=== PATIENT | male | born 1975 | race Caucasian/White ===

== ENCOUNTER 2019-04-28 03:25 | Emergency (ER) | payer OTHER ==
[2019-04-28 03:29] VITALS: RESP 18; TEMP 98.4
[2019-04-28] MEDS ORDERED: SODIUM CHLORIDE 0.9% 1,000 ML IV STA (03:32)
[2019-04-28] MEDS ORDERED: MORPHINE SULFATE 4 MG/ML SYRINGE IV STA (03:32)
--- NOTE | 2019-04-28 03:33 | ED ---
General Adult HPI - General Chief complaint: Abdominal Pain Stated complaint: Abd pain Time Seen by Provider: 04/28/19 03:26 Source: patient, EMS Mode of arrival: EMS Limitations: no limitations - History of Present Illness Initial comments: Dictation was produced using [employer] dictation software. please excuse any grammatical, word or spelling errors. Chief Complaint: 43-year-old male presents with right lower quadrant abdominal pain. History of Present Illness: Patient is a 43-year-old male he denies any past medical history. He states he is here today for right lower quadrant abdominal pain. Patient states that his symptoms started approximately 2 hours prior to arrival. He called EMS. Patient has history of kidney stones. Patient states that the pain that eases 15 today is very different from kidney stone pain. He does however complain of some mild right flank tenderness. Denies any numbness and paresthesias to his extremities. Denies any fever. He does feel nauseous. Patient states his pain is severe. Patient denies any history of abdominal surgery. The ROS documented in this emergency department record has been reviewed and confirmed by me. Those systems with pertinent positive or negative responses have been documented in the HPI. All other systems are other negative and/or noncontributory. PHYSICAL EXAM: General Impression: Alert and oriented x3, acute distress secondary to pain HEENT: Normocephalic atraumatic, extra-ocular movements intact, pupils equal and reactive to light bilaterally, mucous membranes moist. Cardiovascular: Heart regular rate and rhythm, S1&S2 audible, no murmurs, rubs or gallops Chest: Lungs clear to auscultation bilaterally, no rhonchi, no wheeze, no rales Abdomen: Bowel sounds present, abdomen soft, positive rebound tenderness, pain at McBurney's point, pain in the right lower quadrant with palpation to the left lower quadrant, negative Gomez sign, no CVA tenderness Musculoskeletal: Pulses present and equal in all extremities, no peripheral edema Motor: no focal deficits noted Neurological: CN II-XII grossly intact, no focal motor or sensory deficits noted Skin: Intact with no visualized rashes Psych: Normal affect and mood ED course: 43-year-old male presents with right lower quadrant abdominal pain. There is concern of possible acute appendicitis versus kidney stone based on physical examination. Vital signs upon arrival are within acceptable limits. Patient given IV analgesics, intravenous fluids. Laboratory evaluation obtained. CBC unremarkable. No leukocytosis. Metabolic panel is unremarkable. Urinalysis shows [address] of the abdomen and pelvis was obtained showing normal appendix. There is a small 2 mm calculus in the distal right ureter with hydroureter and mild hydronephrosis. Patient given fluids and analgesics. He is observed in emergency department with dramatic improvement of his symptoms. His resting comfortably at bedside. There is suspicion that patient passed a stone in the emergency department given medical improvement of his symptoms. She M Ritesh at baseline here in [facility] department. He will be dispositioned to home. Patient's family were to provide transportation. Patient told to follow-up with primary care physician upon discharge. - Related Data Allergies Allergy/AdvReac Type Severity Reaction Status Date / Time No Known Allergies Allergy Verified 04/28/19 03:30 Review of Systems ROS Statement: Those systems with pertinent positive or pertinent negative responses have been documented in the HPI. ROS Other: All systems not noted in ROS Statement are negative. Past Medical History Past Medical History: Hypertension Additional Past Medical History / Comment(s): kidney stone, depression Past Surgical History: No Surgical Hx Reported Past Psychological History: Depression Smoking Status: Never smoker Past Alcohol Use History: None Reported Past Drug Use History: None Reported General Exam Limitations: no limitations Course Vital Signs 04/28/19 04/28/19 03:26 05:02 Temperature 98.4 F Pulse Rate 62 68 Respiratory 18 18 Rate Blood Pressure 167/108 122/83 O2 Sat by Pulse 95 94 L Oximetry Medical Decision Making - Lab Data Result diagrams: 04/28/19 03:29 04/28/19 03:29 Lab Results 04/28/19 04/28/19 04/28/19 Range/Units 03:29 03:29 03:38 WBC 10.5 (3.8-10.6) k/uL RBC 5.29 (4.30-5.90) m/uL Hgb 15.6 (13.0-17.5) gm/dL Hct 45.0 (39.0-53.0) % MCV 85.1 (80.0-100.0) fL MCH 29.6 (25.0-35.0) pg MCHC 34.8 (31.0-37.0) g/dL RDW 12.7 (11.5-15.5) % Plt Count 249 (150-450) k/uL Neutrophils % 69 % Lymphocytes % 23 % Monocytes % 5 % Eosinophils % 1 % Basophils % 0 % Neutrophils # 7.3 (1.3-7.7) k/uL Lymphocytes # 2.4 (1.0-4.8) k/uL Monocytes # 0.6 (0-1.0) k/uL Eosinophils # 0.1 (0-0.7) k/uL Basophils # 0.0 (0-0.2) k/uL Sodium 141 (137-145) mmol/L Potassium 3.6 (3.5-5.1) mmol/L Chloride 109 H (98-107) mmol/L Carbon Dioxide 21 L (22-30) mmol/L Anion Gap 11 mmol/L BUN 13 (9-20) mg/dL Creatinine 1.04 (0.66-1.25) mg/dL Est GFR (CKD-EPI)AfAm >90 (>60 ml/min/1.73 sqM) Est GFR (CKD-EPI)NonAf 89 (>60 ml/min/1.73 sqM) Glucose 124 H (74-99) mg/dL Calcium 9.1 (8.4-10.2) mg/dL Total Bilirubin 0.5 (0.2-1.3) mg/dL AST 24 (17-59) U/L ALT 28 (21-72) U/L Alkaline Phosphatase 105 (38-126) U/L Total Protein 7.1 (6.3-8.2) g/dL Albumin 4.1 (3.5-5.0) g/dL Lipase 65 (23-300) U/L Urine Color Yellow Urine Appearance Clear (Clear) Urine pH 5.5 (5.0-8.0) Ur Specific [place] 1.019 (1.001-1.035) Urine Protein Trace H (Negative) Urine Glucose (UA) Trace H (Negative) Urine Ketones Negative (Negative) Urine Blood Moderate H (Negative) Urine Nitrite Negative (Negative) Urine Bilirubin Negative (Negative) Urine Urobilinogen <2.0 (<2.0) mg/dL Ur Leukocyte Esterase Negative (Negative) Urine RBC 13 H (0-5) /hpf Urine WBC 1 (0-5) /hpf Calcium Oxalate Crystal Occasional H (None) /hpf Hyaline Casts 7 H (0-2) /lpf Granular Casts 1 (0) /lpf Urine Mucus Rare H (None) /hpf Disposition Clinical Impression: Kidney stone Disposition: HOME SELF-CARE Condition: Good Instructions (If sedation given, give patient instructions): Kidney Stones (ED) Is patient prescribed a controlled substance at d/c from ED?: No Referrals: Mark Hilton MD [Primary Care Provider] - 1-2 days Time of Disposition: 05:13
[2019-04-28 03:39] LABS: Basophils % (A) 0 %; Eosinophils # (A) 0.1 k/uL (0-0.7); Eosinophils % (A) 1 %; HGB 15.6 gm/dL (13.0-17.5); Lymphocytes # (A) 2.4 k/uL (1.0-4.8); Lymphocytes % (A) 23 %; MCH 29.6 pg (25.0-35.0); MCHC 34.8 g/dL (31.0-37.0); MCV 85.1 fL (80.0-100.0); Mean Platelet Volume 5.9; Monocytes # (A) 0.6 k/uL (0-1.0); Monocytes % (A) 5 %; Neutrophils # (A) 7.3 k/uL (1.3-7.7); Neutrophils % (A) 69 %; Platelet Count 249 k/uL (150-450); RBC 5.29 m/uL (4.30-5.90); RDW 12.7 % (11.5-15.5); WBC 10.5 k/uL (3.8-10.6)
[2019-04-28 03:47] LABS: Appearance,Urine Clear (Clear); Bilirubin,Urine Negative (Negative); Blood,Urine Moderate (Negative); Calcium Oxalate Crystals,Urine Occasional /hpf; Color,Urine Yellow; Glucose,Urine (UA) Trace (Negative); Granular Casts,Urine 1 /lpf (0); Hyaline Casts,Urine 7 /lpf (0-2); Ketones,Urine Negative (Negative); Leukocyte Esterase,Urine Negative (Negative); Mucus,Urine Rare /hpf; Nitrite,Urine Negative (Negative); PH, Urine 5.5 (5.0-8.0); Protein,Urine Trace (Negative); RBC,Urine 13 /hpf (0-5); Specific Gravity,Urine 1.019 (1.001-1.035); Urobilinogen,Urine <2.0 mg/dL (<2.0); WBC,Urine 1 /hpf (0-5)
[2019-04-28 03:48] LABS: ALT 28 U/L (21-72); AST 24 U/L (17-59); African American GFR (CKD) >90 (>60 ml/min/1.73 sqM); Albumin 4.1 g/dL (3.5-5.0); Alkaline Phosphatase 105 U/L (38-126); Anion Gap 11 mmol/L; Blood Urea Nitrogen 13 mg/dL (9-20); Calcium 9.1 mg/dL (8.4-10.2); Carbon Dioxide 21 mmol/L (22-30); Chloride 109 mmol/L (98-107); Glucose 124 mg/dL (74-99); Potassium 3.6 mmol/L (3.5-5.1); Sodium 141 mmol/L (137-145); Total Bilirubin 0.5 mg/dL (0.2-1.3); Total Protein 7.1 g/dL (6.3-8.2)
--- NOTE | 2019-04-28 04:06 | CT ---
EXAMINATION TYPE: CT abdomen pelvis w con DATE OF EXAM: 04/28/2019 COMPARISON: None HISTORY: Patient presents with abdominal pain. CT DLP: 1572.5 mGycm Automated exposure control for dose reduction was used. TECHNIQUE: Helical acquisition of images was performed from the lung bases through the pelvis. CONTRAST: Performed without Oral Contrast and with IV Contrast, patient injected with 100mL mL of Isovue 300. FINDINGS: Multiple axial sections were obtained from the diaphragm to the floor the pelvis with intravenous con trast. Lung bases are clear of consolidation. There is no pleural effusion. Heart size is normal. There is n o pericardial effusion. Liver spleen pancreas gallbladder appear normal. Bile ducts are not dilated. Stomach appears normal. There is no adrenal mass. There is right-sided hydronephrosis and hydroureter. There is right-sided p erinephric edema and periureteral edema. There is 2 mm calculus in the distal right ureter. Bladder d istends smoothly. There are multiple sigmoid diverticula. There is no sign of diverticulitis. The appendix appears norm al. There is no retroperitoneal adenopathy. There is no inguinal hernia. There is no mesenteric edema. There is no ascites or free air. There is no sign of a bowel obstructio n. Delayed images show no contrast excretion on the right side. There is 1 cm cortical cyst posterior right kidney. Lumbar vertebra have normal spacing and alignment. There is no compression fracture. Bony pelvis is i ntact. IMPRESSION: THERE IS SMALL OBSTRUCTING CALCULUS DISTAL RIGHT URETER WITH RIGHT-SIDED HYDRONEPHROSIS AND HYDROURET ER.
[2019-04-28 05:02] VITALS: BP 122/83; PULSE 68
== END 2019-04-28 05:31 | disposition home or self-care (01) ==
LOC: EC 03:25
DX: N13.2 Hydronephrosis with renal and ureteral calculous obstruction (principal)
CPT/HCPCS: 36415; 80053; 83690; 85025; 81001; 74177; 99285; 96374; 96361 ×2; J2270; Q9967

== ENCOUNTER 2021-04-27 15:11 | Emergency (ER) | payer OTHER ==
[2021-04-27 15:26] VITALS: PULSE 58
[2021-04-27] MEDS ORDERED: KETOROLAC 15 MG/ML 1 ML VIAL IM STA (15:55)
[2021-04-27] MEDS ORDERED: ORPHENADRINE 30 MG/ML 2 ML VIAL IM STA (15:55)
--- NOTE | 2021-04-27 16:56 | XR ---
EXAMINATION TYPE: XR thoracic spine 2V DATE OF EXAM: 04/27/2021 COMPARISON: NONE HISTORY: Back pain TECHNIQUE: 3 views FINDINGS: There is no sign of fracture nor dislocation. Thoracic vertebra have normal alignment. Ther e is no compression deformity. There is no sign of thoracic paraspinal mass. IMPRESSION: Negative thoracic spine exam.
--- NOTE | 2021-04-27 17:03 | ED ---
Back Pain HPI - General Chief Complaint: Back Pain/Injury Stated Complaint: Back injury @ work Time Seen by Provider: 04/27/21 15:50 Source: patient, RN notes reviewed Limitations: no limitations - History of Present Illness Initial Comments: Patient is a 45-year-old male that presents to emergency room complaining of mid back pain. He notes he was at work lifting objects and he felt his back lockup. Patient notes that he has tenderness over the left paraspinal muscles. Patient was otherwise well-appearing. He denied any other injuries or trauma. He denied any saddle anesthesia bladder or bowel incontinence or retention. He denied any chest pain shortness breath headache nausea vomiting diarrhea constipation fever fatigue chills. - Related Data Previous Rx's Medication Instructions Recorded Cyclobenzaprine HCl 10 mg PO TID 10 Days #30 tab 04/27/21 Allergies Allergy/AdvReac Type Severity Reaction Status Date / Time No Known Allergies Allergy Verified 04/28/19 03:30 Review of Systems ROS Statement: Those systems with pertinent positive or pertinent negative responses have been documented in the HPI. ROS Other: All systems not noted in ROS Statement are negative. Past Medical History Past Medical History: Hypertension Additional Past Medical History / Comment(s): kidney stone, depression History of Any Multi-Drug Resistant Organisms: None Reported Past Surgical History: No Surgical Hx Reported Past Psychological History: Depression Smoking Status: Current every day smoker Past Alcohol Use History: Occasional Past Drug Use History: Marijuana General Exam Limitations: no limitations General appearance: alert, in no apparent distress Head exam: Present: atraumatic, normocephalic, normal inspection Eye exam: Present: normal appearance, PERRL, EOMI. Absent: scleral icterus, conjunctival injection, periorbital swelling Neck exam: Present: normal inspection Respiratory exam: Present: normal lung sounds bilaterally. Absent: respiratory distress, wheezes, rales, rhonchi, stridor Cardiovascular Exam: Present: regular rate, normal rhythm, normal heart sounds. Absent: systolic murmur, diastolic murmur, rubs, gallop, clicks Extremities exam: Present: normal inspection, full ROM, normal capillary refill. Absent: tenderness, pedal edema, joint swelling, calf tenderness Back exam: Present: normal inspection, paraspinal tenderness (Left mid back) Neurological exam: Present: alert, oriented X3 Psychiatric exam: Present: normal affect, normal mood Skin exam: Present: warm, dry, intact, normal color. Absent: rash Course Vital Signs 04/27/21 15:23 Temperature 97.9 F Pulse Rate 58 L Respiratory 20 Rate Blood Pressure 127/86 O2 Sat by Pulse 96 Oximetry Medical Decision Making - Medical Decision Making 45-year-old male complaining of mid back pain while lifting boxes at work. 15 mg Toradol, 60 mg Norflex, x-ray of the thoracic spine ordered. X-ray negative for any acute fractures or dislocations. Patient most likely has a thoracic back sprain muscle strain. Case discussed with Dr. Shaffer, patient can discharge home with follow-up to primary care. - Radiology Data Radiology results: report reviewed, image reviewed X-ray thoracic spine: Negative thoracic spine exam. Disposition Clinical Impression: Mechanical back pain, Thoracic back pain Disposition: HOME SELF-CARE Condition: Stable Instructions (If sedation given, give patient instructions): Acute Low Back Pa in (ED) Additional Instructions: Please return to the Emergency Department if symptoms worsen or any other concerns. Follow-up with primary care 1-2 days. Take muscle relaxer as prescribed. Avoid any shortness activity or exercise. Is patient prescribed a controlled substance at d/c from ED?: No Referrals: Gabriela Swanson DO [Primary Care Provider] - 1-2 days Time of Disposition: 17:02
[2021-04-27 17:19] VITALS: BP 125/87; RESP 16; TEMP 98.4
== END 2021-04-27 17:18 | disposition home or self-care (01) ==
LOC: EC 15:11
DX: M54.6 Pain in thoracic spine (principal); I10 Essential (primary) hypertension; F32.9 Major depressive disorder, single episode, unspecified; F17.200 Nicotine dependence, unspecified, uncomplicated; F12.90 Cannabis use, unspecified, uncomplicated; Z87.442 Personal history of urinary calculi
CPT/HCPCS: 99283; 96372 ×2; 72070; J2360; J1885